=== PATIENT | male | born 1995 | race Two or more races ===

== ENCOUNTER 2023-12-01 12:56 | Emergency (ER) | payer OTHER ==
[~2023-12-01] VITALS: Ht 162.6 cm; Wt 87.7 kg
[2023-12-01] MEDS ORDERED: CEPH500C PO (19:16)
[2023-12-01] MEDS ORDERED: IBUP-1456 PO (19:16)
[2023-12-01 19:42] VITALS: BP 124/79; PULSE 78; RESP 18; TEMP 99; O2SAT 97
[2023-12-01] MEDS: LIDOCAINE 1% HCL (LOCAL ANESTH.) INJ 20ML MDV ID ONE (20:08)
[2023-12-01] MEDS: TETANUS-DIPTH-ACEL PERTUSSIS 0.5ML SYR Tdap IM ONE (20:10)
== END 2023-12-01 20:55 | disposition home or self-care (01) ==
LOC: ER 12:56
DX: S61.210A Laceration without foreign body of right index finger without damage to nail, initial encounter (principal); Z79.899 Other long term (current) drug therapy; W31.89XA Contact with other specified machinery, initial encounter; Y93.89 Activity, other specified; Y92.89 Other specified places as the place of occurrence of the external cause; Y99.0 Civilian activity done for income or pay
CPT/HCPCS: 12001; 90471; 90715; 99283; J2001